=== PATIENT | female | born 1950 | race Caucasian/White ===

== ENCOUNTER 2017-07-06 09:01 | Inpatient (IN) | payer OTHER ==
--- NOTE | 2017-07-06 09:17 | EDPHY ---
H & P Time Seen by Provider: 07/06/17 09:16 HPI/ROS: Chief complaint. Confusion HPI. Patient is a 67-year-old female with indwelling Hughes catheter. 2 days ago she had nausea and vomiting. She was confused yesterday and was seen by her PCP who diagnosed a UTI started on Bactrim. Urine was cultured and the culture results are still pending. She was slightly agitated. This morning however her symptoms have progressed with more confusion than more agitation. She could not feed herself this morning secondary to tremor. She also has today right lower extremity swelling and warmth. There has been no trauma to her leg. Today she is confused to place and date. She tells me she thinks is 2000. Her has noticed decreased urine output and the urine was very dark yesterday. He has increased her oral fluids and today her urine is more clear. She has had low-grade fever and been more fidgety than usual. Again she has chronic indwelling Hughes catheter. She has had urosepsis previously. No upper respiratory findings. ROS Constitutional. Fever and weakness Eyes. no problems with vision ENT. no sore throat, no nasal drainage Cardiovascular. no chest pain Respiratory. no shortness of breath, no cough Abdominal. no abdominal pain, no nausea/vomiting, no diarrhea . Dark urine with recent diagnosis UTI and indwelling catheter MS. no calf pain/swelling, no neck/back pain, no joint pain Skin. no rash Lymph. no swollen glands Neuro. Confusion Past Medical/Surgical History: Past medical history MS, hypertension, dyslipidemia Social History: , nonsmoker, no alcohol Smoking Status: Never smoked Physical Exam: General Appearance: Alert well-developed female somewhat confused vital signs are stable Eyes: Pupils equal and round no pallor or injection. ENT, Mouth: Mucous membranes are moist. Respiratory: There are no retractions, lungs are clear to auscultation. Cardiovascular: Regular rate and rhythm. Gastrointestinal: Abdomen is soft and nontender, no masses, bowel sounds normal. Neurological: Awake and alert, sensory and motor exams grossly normal. Skin: Warm and dry, no rashes. Musculoskeletal: Neck is supple nontender. Extremities right lower extremity has swelling and erythema and warmth. Psychiatric: Patient is oriented to person but not place or time. Mildly agitated. Constitutional: Initial Vital Signs Temperature (C) 37.4 C 07/06/17 09:05 Heart Rate 78 07/06/17 09:05 Respiratory Rate 18 07/06/17 09:05 Blood Pressure 148/78 H 07/06/17 09:05 O2 Sat (%) 94 07/06/17 09:05 O2 Delivery Mode Room Air Allergies/Adverse Reactions: carbamazepine [From Tegretol] Allergy (Mild, Verified 07/06/17 09:04) Itching Home Medications: Medication Instructions Recorded Alendronate Sodium [Fosamax 70 MG 70 mg PO DAILY 07/06/17 (*)] Aspirin [Aspirin 325 mg (*)] 325 mg PO DAILY 07/06/17 Baclofen [Baclofen 20 mg (*)] 20 mg PO BID 07/06/17 FLUoxetine [PROzac] 40 mg PO 07/06/17 Gabapentin [Neurontin 300 MG (*)] 300 mg PO HS 07/06/17 Hydrochlorothiazide [HCTZ (*)] 25 mg PO DAILY 07/06/17 Lisinopril [Zestril 2.5 mg (*)] 2.5 mg PO 07/06/17 Metoprolol Succinate Xr [Toprol Xl 50 mg PO DAILY 07/06/17 50 mg (*)] Ondansetron Odt [Zofran Odt 4 mg 4 mg PO Q4 07/06/17 (*)] Solifenacin Succinate [Vesicare 5 07/06/17 MG (*)] Sulfamethox/Tmp 800/160 mg 1 tab PO 07/06/17 [Bactrim Ds] tiZANidine HCL [Zanaflex] 4 mg PO HS 07/06/17 Medical Decision Making - Diagnostics Imaging Results: Imaging Impressions Extremity Venous Study 07/06/17 09:33 Impression: 1. No deep venous thrombosis right leg. 2. Right groin lymph nodes. 3. Limited evaluation of the right calf veins. Findings and recommendations discussed with Emergency Department physician, LEIGH ANN MARSHALL at 10:40 hour, 07/06/2017. Final report concurs with initial preliminary interpretation. One-view chest x-ray interpreted by me as negative for pneumonia Procedures: IV normal saline. Sepsis workup including blood in urine cultures. IV Rocephin. ED Course/Re-evaluation: Lactate is negative. \re-evaluation at 10:45 p.m.. Patient is stable but unchanged. She is being given IV Rocephin. Patient, her , and I discussed imaging and lab results. We discussed treatment plan including recommendation for admission. They expressed understanding and agreement I consulted discussed the case with Dr. Pardo, hospitalist, who agrees to the admission Differential Diagnosis: Patient appears to have failed outpatient management of urinary tract infection with indwelling Hughes. She however has had only 1 dose of oral antibiotics. However she is more confused and unable to feed herself. She is disoriented to place and time. I considered sepsis for though her lactate is normal. She has a swollen, erythematous, warm right lower extremity. I considered DVT but the ultrasound shows no evidence for DVT. This is likely cellulitis of the right lower extremity. There is no evidence for pneumonia. She also has significant hyponatremia. - Data Points Laboratory Results: Laboratory Results 07/06/17 09:55 07/06/17 07/06/17 07/06/17 10:30 10:30 09:55 WBC RBC Hgb Hct MCV MCH MCHC RDW Plt Count MPV Neut % (Auto) Lymph % (Auto) Dougherty % (Auto) Eos % (Auto) Baso % (Auto) Nucleat RBC Rel Count Absolute Neuts (auto) Absolute Lymphs (auto) Absolute Monos (auto) Absolute Eos (auto) Absolute Basos (auto) Absolute Nucleated RBC Immature Gran % Immature Gran # PT Pending INR Pending APTT Pending VBG Lactic Acid Sodium Pending 117 mEq/L L* mEq/L (135-145) Potassium Pending 4.1 mEq/L mEq/L (3.5-5.2) Chloride Pending 84 mEq/L L mEq/L (97-110) Carbon Dioxide Pending 23 mEq/l mEq/l (22-31) Anion Gap Pending 10 mEq/L mEq/L (8-16) BUN Pending 15 mg/dL mg/dL (7-23) Creatinine Pending 0.5 mg/dL L mg/dL (0.6-1.0) Estimated GFR Pending > 60 Glucose Pending 97 mg/dL mg/dL (70-100) Calcium Pending 8.3 mg/dL L mg/dL (8.5-10.4) Total Bilirubin 1.0 mg/dL mg/dL (0.1-1.4) Specimen Hemolysis 117 Urine Color Urine Appearance Urine pH Ur Specific [place] Urine Protein Urine Ketones Urine Blood Urine Nitrate Urine Bilirubin Urine Urobilinogen Ur Leukocyte Esterase Urine RBC Urine WBC Ur Epithelial Cells Amorphous Sediment Urine Bacteria Urine Mucus Urine Glucose 07/06/17 07/06/17 07/06/17 09:55 09:55 09:20 WBC 13.56 10^3/uL H 10^3/uL (3.80-9.50) RBC 4.24 10^6/uL 10^6/uL (4.18-5.33) Hgb 13.1 g/dL g/dL (12.6-16.3) Hct 36.7 % L % (38.0-47.0) MCV 86.6 fL fL (81.5-99.8) MCH 30.9 pg pg (27.9-34.1) MCHC 35.7 g/dL g/dL (32.4-36.7) RDW 13.2 % % (11.5-15.2) Plt Count 180 10^3/uL 10^3/uL (150-400) MPV 9.8 fL fL (8.7-11.7) Neut % (Auto) 90.9 % H % (39.3-74.2) Lymph % (Auto) 3.6 % L % (15.0-45.0) Dougherty % (Auto) 4.9 % % (4.5-13.0) Eos % (Auto) 0.1 % L % (0.6-7.6) Baso % (Auto) 0.1 % L % (0.3-1.7) Nucleat RBC Rel Count 0.0 % % (0.0-0.2) Absolute Neuts (auto) 12.31 10^3/uL H 10^3/uL (1.70-6.50) Absolute Lymphs (auto) 0.49 10^3/uL L 10^3/uL (1.00-3.00) Absolute Monos (auto) 0.67 10^3/uL 10^3/uL (0.30-0.80) Absolute Eos (auto) 0.02 10^3/uL L 10^3/uL (0.03-0.40) Absolute Basos (auto) 0.02 10^3/uL 10^3/uL (0.02-0.10) Absolute Nucleated RBC 0.00 10^3/uL 10^3/uL (0-0.01) Immature Gran % 0.4 % % (0.0-1.1) Immature Gran # 0.05 10^3/uL 10^3/uL (0.00-0.10) PT INR APTT VBG Lactic Acid 1.1 mmol/L mmol/L (0.7-2.1) Sodium Potassium Chloride Carbon Dioxide Anion Gap BUN Creatinine Estimated GFR Glucose Calcium Total Bilirubin Specimen Hemolysis Urine Color RED Urine Appearance HAZY Urine pH 6.0 (5.0-7.5) Ur Specific [place] 1.006 (1.002-1.030) Urine Protein NEGATIVE (NEGATIVE) Urine Ketones NEGATIVE (NEGATIVE) Urine Blood NEGATIVE (NEGATIVE) Urine Nitrate POSITIVE H (NEGATIVE) Urine Bilirubin NEGATIVE (NEGATIVE) Urine Urobilinogen NEGATIVE EU EU (0.2-1.0) Ur Leukocyte Esterase 1+ H (NEGATIVE) Urine RBC NONE SEEN /hpf /hpf (0-3) Urine WBC 1-3 /hpf /hpf (0-3) Ur Epithelial Cells TRACE /lpf /lpf (NONE-1+) Amorphous Sediment PRESENT /hpf /hpf (NONE-1+) Urine Bacteria 1+ /hpf H /hpf (NONE SEEN) Urine Mucus TRACE /lpf /lpf (NONE-1+) Urine Glucose NEGATIVE (NEGATIVE) Medications Given: Ceftriaxone Sodium/Dextrose (Rocephin 1 Gm (Premix)) 50 mls @ 100 mls/hr IV EDNOW ONE PRN Reason: Protocol Stop: 07/06/17 10:59 Last Admin: 07/06/17 10:42 Dose: 50 mls Departure - Departure Disposition: [facility] Inpatient Acute Clinical Impression: Hyponatremia Urinary tract infection Qualifiers: Urinary tract infection type: site unspecified Hematuria presence: without hematuria Qualified Code(s): N39.0 - Urinary tract infection, site not specified Altered mental status Qualifiers: Altered mental status type: disorientation Qualified Code(s): R41.0 - Disorientation, unspecified Condition: Fair Referrals: Jaye Ramsey MD [Medical Doctor] - As per Instructions
[2017-07-06 10:06] LABS: PLATELET COUNT 180 10^3/uL (150-400)
[2017-07-06 10:51] LABS: INR 0.96 (0.83-1.16)
[2017-07-06] MEDS ORDERED: ONDANSETRON DISINTEGRATING 4 MG TAB PO PRN (10:59)
[2017-07-06] MEDS ORDERED: ONDANSETRON 4 MG/2 ML VIAL IVP PRN (10:59)
[2017-07-06] MEDS ORDERED: NS 1,000 ML IV SCH (12:15)
[2017-07-06] MEDS ORDERED: ALTEPLASE 2 MG VIAL IVP PRN (13:07)
--- NOTE | 2017-07-06 13:51 | GHP ---
[f rep st] HISTORY AND PHYSICAL DATE OF ADMISSION: 07/06/2017 CHIEF COMPLAINT: Altered mental status, UTI, cellulitis, and hyponatremia. HISTORY OF PRESENT ILLNESS: This is a 67-year-old female with a history of multiple sclerosis, neurogenic bladder with chronic Hughes, brought in by her for increased confusion. She was seen by her PCP yesterday with complaints of 2 days of nausea and vomiting that was moderate in severity. She has had decreased p.o. intake. Per , she is more confused and has had a mild tremor. He was suspicious that she had a urinary infection because these are symptoms she presents with in the past. She was seen in the office and had a positive UA and was started on Bactrim and took 2 doses. He brought her today because her confusion has progressed. She has been taking her normal home medications, including hydrochlorothiazide. No diarrhea, cough. has noticed overnight that her right foot and leg have become more swollen, as well as red and warm to touch. Had her Hughes last changed on June 16. REVIEW OF SYSTEMS: I completed a 10-point review of systems, negative, except as noted in the HPI. PAST MEDICAL HISTORY: Hypertension, hyperlipidemia, multiple sclerosis, chronic Hughes, prior urinary tract infections, trigeminal neuralgia. PAST SURGICAL HISTORY: Tubal ligation. Breast biopsy was negative. SOCIAL HISTORY: Lives in [place] with her . No alcohol, tobacco, or illicits. FAMILY HISTORY: Noncontributory. HOME MEDICATIONS: Benadryl q.h.s., mag oxide, multivitamin, calcium carbonate, vitamin D, vitamin D3 2000 units daily, atorvastatin 20 mg daily at 12, baclofen 20 mg 5 times a day, aspirin 325 q.h.s., Fosamax weekly, lisinopril 2.5 mg daily, hydrochlorothiazide 25 mg q.h.s., Neurontin 300 mg b.i.d., fluoxetine 400, Bactrim 1 tab p.o. b.i.d. (has taken 2 doses), Zofran as needed , Toprol 50 daily, Zanaflex 4 mg q.h.s., VESIcare. ALLERGIES: Tegretol. PHYSICAL EXAM: VITAL SIGNS: Temperature 36.9, blood pressure 115/70, heart rate 76, respirations 14, 92% on room air. GENERAL: female, lying in bed, mildly uncomfortable. HEENT: PERRLA. Dry mucous membranes. Oropharynx clear. CV: Regular rate and rhythm. No murmurs, gallops, or rubs. LUNGS: Clear. ABDOMEN: Mildly distended but soft. No grimace or pain with palpation. : No CVA or suprapubic tenderness. Hughes in place with yellow urine. NEURO: 2 through 12 intact. Spasticity of lower extremities. PSYCH: Alert to self only. SKIN: Warmth and erythema over left foot and ankle. No ulceration or purulence or open lesions. It is warm and red. LABORATORY DATA: WBC is 13. Hemoglobin is 13, hematocrit 36, platelets 180. INR is 0.9. Lactate is 1.1. Sodium 120, potassium 3.5, chloride 85, carbon dioxide 24, creatinine 0.6, glucose 95. Serum osmolality is 248. Calcium is 8.6. Urine: Positive nitrite, +1 leukocyte esterase, +1 bacteria. Ultrasound of right leg negative for DVT. Chest x-ray: No evidence of effusion or pneumonia. ASSESSMENT AND PLAN: 1. Acute metabolic encephalopathy: This is multifactorial with acute urinary tract infection, cellulitis, and hyponatremia. Will start IV antibiotics. Will correct sodium slowly. No focal deficits on exam. Will hold central acting medications, including her tizanidine, baclofen, gabapentin. 2. Hypovolemic hyponatremia: Due to decreased p.o. intake, nausea, vomiting, and continue on hydrochlorothiazide. Serum osmolality is low at 248. Sodium is 120. Will start normal saline slowly at 75 mL an hour, check sodium q.4. Auto diuresis, may need DDAVP to prevent too rapid of correction. 3. Urinary tract infection: We started on Bactrim yesterday. Will transition to IV antibiotics here. She is afebrile. Blood and urine cultures are pending. 4. Right leg cellulitis: Nonpurulent. Will start IV Ancef. Negative ultrasound for DVT. 5. Multiple sclerosis: Is wheelchair bound. 6. Depression: Resume home medications. 7. Hyperlipidemia: Statin. 8. Hypertension: Resume home medications. 9. Diet: Advance as tolerated. 10. Deep venous thrombosis prophylaxis: Lovenox. 11. Disposition: Patient warrants inpatient admission given acute encephalopathy and infection. Continue IV fluids and antibiotics. Critical care time spent: 50 min examining pt, reviewing records and coordinating ICU treatment plan. /[id number]/MODL CHRISTOPHER
--- NOTE | 2017-07-06 15:02 | PDMN ---
Medical Necessity Medical necessity: C/M review: est. > 2 MN LOS for eval and TX of acute metabolic encephalopathy, hypovolemic hyponatremia, urinary tract infection, blood and urine cultures pending right leg cellulitis requiring planned 2017 PICC placement, ongoing IV Ancef, IV fluids, comorbid patient started on oral Bactrim 07/05/2017, failed outpt. therapy, multiple sclerosis, patient is wheelchair bound, depression, hyperlipidemia, hypertension, chronic indwelling Hughes catheter, history of prior urinary tract infections, trigeminal neuralgia per H/P.
[2017-07-06] MEDS ORDERED: POTASSIUM CL 20 MEQ TAB PO ONE (16:12)
[2017-07-06] MEDS: ACETAMINOPHEN 325 MG TAB PO PRN (16:20)
--- NOTE | 2017-07-06 16:56 | ASMTCMCOM ---
CM Note CM Note Notes: Pt admtd for metabolic encephelopathy related to acute UTI, hyponatremia (d/t N/V, decreased intake), and leg cellulitis. Pt presented to the ED with her Sagar. They live in [place] and pt's PCP is Dr Alla Agustin. Exact DC needs TBD. CM to follow. Date Signed: 07/06/2017 04:55 PM Electronically Signed By:Liza Bray RN
[2017-07-06] MEDS ORDERED: PROTOCOL POTASSIUM 1 DOSE MISC PRN (20:17)
[2017-07-06] MEDS: POTASSIUM Cl (KCl) 50 ML IV SCH ×3 (20:41→20:43)
[2017-07-06] MEDS: CALCIUM CARB W/VIT D 500 MG TAB PO SCH (22:25)
[2017-07-07] MEDS: FLUoxetine 20 MG CAP PO SCH (09:02)
[2017-07-07] MEDS ORDERED: NS IV ONE (09:03)
[2017-07-07] MEDS ORDERED: DESMOPRESSIN ACETATE IV ONE (09:03)
[2017-07-07] MEDS: ENOXAPARIN 40 MG/0.4 ML SYR SC SCH (09:03)
--- NOTE | 2017-07-07 09:12 | HOSPPROG ---
Hospitalist Progress Note Assessment/Plan: #Strep bacteremia( awaiting species) -skin source with cellulitis. Cont Ancef #CAUTI: chronic diaz in place. Culture pending #Metabolic encephalopathy: due to infection, hyponatremia #Hypovolemic hyponatremia: corrected too quickly. Spoke with Objective: Vital Signs Temp Pulse Resp BP Pulse Ox 36.9 C 80 17 135/68 H 99 07/07/17 07:59 07/07/17 07:59 07/07/17 07:59 07/07/17 07:59 07/07/17 07:59 Laboratory Results 07/07/17 05:00 07/06/17 07/07/17 07/08/17 05:59 05:59 05:59 Intake Total 2165 Output Total 3275 Balance -1110 PT 13.0 SEC (12.0-15.0) 07/06/17 10:30 INR 0.96 (0.83-1.16) 07/06/17 10:30 ICD10 Worksheet Patient Problems: Problems Problem Status Onset Altered mental status Acute Hyponatremia Acute Urinary tract infection Acute
[2017-07-07] MEDS: LISINOPRIL 2.5 MG TAB PO SCH (09:49)
[2017-07-07] MEDS: ACETAMINOPHEN 325 MG TAB PO PRN (11:00)
--- NOTE | 2017-07-07 11:40 | GCON ---
[f rep st] CONSULTATION INFECTIOUS DISEASE CONSULTATION DATE OF CONSULTATION: 07/07/2017 REFERRING PHYSICIAN: Elisa Pardo MD REASON FOR CONSULTATION: Bacteremia. CHIEF COMPLAINT: Altered mental status, right lower extremity cellulitis, and UTI. HISTORY OF PRESENT ILLNESS: This is a 67-year-old female with a past medical history of multiple sclerosis, wheelchair bound, neurogenic bladder with a chronic Hughes, recently changed on June 16 by her . They are in the process of moving from [place] and only moved here about 3 weeks ago. This past , she woke up and suddenly had nausea and vomiting. There was some difficulty keeping p.o. intake. By Saturday, she was a little bit better and only vomited twice. They took her to her primary care doctor on Saturday who did a urine study and felt she probably had a urinary tract infection. She was placed on Bactrim empirically. By Saturday, she was starting to have some increase in confusion on Saturday, but this had worsened over on Saturday, and therefore they came into the hospital for further evaluation. Blood cultures x2 sets were drawn. Urinalysis and urine culture were also sent. She was given a dose of ceftriaxone and placed on Ancef 1 g q.8. Blood cultures popped up positive for Streptococcus, not further identified. The patient is unable to tell me if she feels any better. She is answering some questions, but is not answering others. Per her , she is usually more conversational. She does have some baseline confusion according to him, but this is more than her baseline. Infectious Disease is now consulted for further evaluation and plan. REVIEW OF SYSTEMS: CONSTITUTIONAL: No fevers or shaking chills. HEAD: Had headache this morning. EYES: No change in her vision. ENT: She cannot tell me if she has had any sore throat or difficulty swallowing. She feels like her throat is dry. CARDIOVASCULAR: She denies any chest pain or rapid heartbeat. RESPIRATORY: She cannot tell me if she is short of breath, but she denies coughing. ABDOMEN: Denies any further nausea, vomiting. She had a normal bowel movement on Saturday, followed by a looser bowel movement on Saturday. She normally does not have bowel movements every day. Usually she has to have a bowel regimen in place. She is complaining of some midabdominal pain. : She has a Hughes in place. MUSCULOSKELETAL: She is complaining of right lower extremity pain. SKIN: Right lower extremity redness. Rest of 10-point review of systems essentially negative except above. PAST MEDICAL HISTORY: Significant for multiple sclerosis, wheelchair bound; dyslipidemia; hypertension; neurogenic bladder with a chronic Hughes; history of urinary tract infections in the past; trigeminal neuralgia; breast lump. She has had some injuries to her right ankle and has had some chronic swelling from that. PAST SURGICAL HISTORY: Significant for tubal ligation and breast biopsy that returned as benign. ALLERGIES: Tegretol. SOCIAL HISTORY: She is a nonsmoker. Does not drink alcohol. Lives with her . They recently moved from [place] about 3 weeks ago. FAMILY HISTORY: Significant for coronary artery disease in her father. MEDICATIONS: As per MAR. PHYSICAL EXAMINATION: VITAL SIGNS: Temperature current 36.9, T-max 37.7, pulse is 80, blood pressure 135/68, respiratory rate is 17, O2 saturations 99% on 1 L O2 per nasal cannula. GENERAL: Patient is resting in bed. No acute respiratory distress. Awake and alert. She is not oriented to time or date. She knows she is in the hospital. HEENT: Head is normocephalic, atraumatic. Eyes without conjunctival injection or petechiae noted. They are reactive to light. Oropharynx: She does appear to have some gingivitis noted. CARDIOVASCULAR: S1, S2. Regular rate and rhythm. She has a 3/6 systolic murmur appreciated. This is new to her and her . RESPIRATORY: Clear to auscultate anteriorly. No obvious rhonchi or rales appreciated. ABDOMEN: Slightly distended, but according to her has been not more than baseline. She has a small umbilical hernia. She is nontender to palpation. There is no guarding or rebound appreciated. EXTREMITIES: She has right lower extremity edema. Right lower extremity swelling involving her foot, ankle, and leg predominantly. There is erythema over the right foot in a more diffuse fashion and then more patchy erythema over the leg and slightly up onto the thigh. This is not warm or hot to touch. She has some mild dry skin, but no obvious breaks in the skin. No obvious tenia pedis. Nontender to palpation. Left lower extremity: Again, mild dry skin. No obvious tenia pedis noted. She has a PICC line in the left upper extremity. LABORATORY DATA: White blood cell count is 13.5, hemoglobin 13.1, platelets are 180, neutrophil count 90%. INR 0.9. Venous lactic acid 1.1. Sodium 133, up from 120 when she first came in. Potassium 4.3, chloride is 99, bicarb 26. BUN is 8, creatinine 0.5. Urinalysis shows positive nitrites, positive leukocyte esterases. Urine WBCs 1-3, urine bacteria 1+. This is after a couple doses of Bactrim. Blood cultures 1/4 bottles with gram-positive cocci in chains and pairs with a preliminary ID of Streptococcus, not group A, not group B, not pneumococcus. Urine culture from the 6th shows 80,000 to 90,000 gram-negative rods, non-lactose blanket washer, greater than 1000 Enterococcus faecalis, and greater than 100,000 two colony types. Urine culture from yesterday is showing greater than 100,000 gram-negative rods and non-lactose blanket washer and greater than 100,000 gram-positive cocci. Chest x-ray images were reviewed, and there is no evidence of pneumonia. Right lower extremity ultrasound shows no evidence of DVT. ASSESSMENT: 1. Streptococcus bacteremia. 2. Right lower extremity cellulitis. 3. Positive urine culture with bland Urinanalysis-likely colonzied. 4. Murmur. PLAN: The Streptococcus isolated in the blood culture could represent Streptococcus viridans, or group C/G Streptococcus. Given that I heard a murmur and this is new to her, I would recommend a baseline transthoracic echocardiogram to further evaluate. Recommend elevating her right lower extremity to help reduce swelling. Urine cultures are polymicrobial with no real change after a couple doses of Bactrim. Urinanalysis however is quite bland. Likely represent colonization. Spoke to microbiology. Steptococcus in blood is not Enterococcus. Continue with Ancef given #1, and #2. Plan of care was discussed with the patient and her at the bedside. Care was coordinated with the hospitalist team, the box truck washer team, her RN, and Pharmacy. I thank you very much for providing this opportunity to care for your patient in consultation. /[id number]/MODL MTDD
[2017-07-07] MEDS ORDERED: METOPROLOL SUCCINATE XR 50 MG TAB PO SCH (12:00)
[2017-07-07] MEDS: METOPROLOL SUCCINATE XR 50 MG TAB PO SCH (12:19)
[2017-07-07] MEDS: D5W 1,000 ML IV SCH ×2 (12:21→17:45)
--- NOTE | 2017-07-07 12:38 | WOCRNPDOC ---
WOCRN Advanced Assessment Note - Skin Integrity Problem, Advanced Assess Sacrum Dermatitis Dressing Type: Mepilex Border Dressing Description: Clean/Dry, Intact Exudate Amount: None Integumentary Issue Intervention: Dressing Removed Marialuisa Wound Tissue: Blanching Wound Bed Color: [place] Skin Integrity Problem Comment: Patient with an anatomical dimple over her sacrum. Given her anatomy, there is likely some skin on skin contact in this area and this patient has developed a very mild intertriginal dermatitis as a result. Removed the mepilex to the area to allow for greater air flow. Patient already on TAPS system and turn schedule and with good support. Wound care will not continue to follow this patient. Please reconsult PRN.
--- NOTE | 2017-07-07 12:47 | HOSPPROG ---
Hospitalist Progress Note Assessment/Plan: #Strep bacteremia -skin source with cellulitis vs. Enterococcus (prior UTI) Cont Ancef 2gm. Appreciate ID -cehck echo with murmur #Right foot cellulitis: negative US. IV Ancef #Pyuria: has chronic diaz; may colonization. H/o Enterococcus #Metabolic encephalopathy: mildly improved. Due to infection, hyponatremia. Holding home meds that are sedative #Hypovolemic hyponatremia: multifactorial with HCTZ, N/V. Large amount UOP overnight; thus corrected quickly. Discussed with Dr. Wharton who recommended DDAVP, D5W 200ml/mr. Q4hr Na. Will stop D5W once Na 126-27. If polyuric again, re-dose DDAVP. #MS: restart anti-spasmotics once mentally clears #Leukocytosis/fever: plan as above #Sacrum dermatitis: present at admission #HLD: statin #HTN: BB, ACEI #DVT: lovenox #Diet: regular #Disp: warrants ICU admission for serial BMP, IVFs, abx. Critical care time spent: 50 min evaluating labs, patient and d/w with Dr. Hroton , Norm Norman and Dr. Wharton Subjective: more alert and talkative per Objective: Vital Signs Temp Pulse Resp BP Pulse Ox 37.2 C 87 16 116/88 H 96 07/07/17 12:36 07/07/17 12:36 07/07/17 12:36 07/07/17 12:36 07/07/17 12:36 Laboratory Results 07/07/17 05:00 07/06/17 07/07/17 07/08/17 05:59 05:59 05:59 Intake Total 2165 Output Total 3275 Balance -1110 PT 13.0 SEC (12.0-15.0) 07/06/17 10:30 INR 0.96 (0.83-1.16) 07/06/17 10:30 - Time Spent With Patient Time Spent with Patient: greater than 35 minutes Time Spent with Patient: Greater than 35 minutes spent on this patients care, greater than 50% of time spent counseling, educating, and coordinating care regarding the above mentioned plan. - Physical Exam Constitutional: no apparent distress Eyes: PERRL Ears, Nose, Mouth, Throat: dry mucous membranes Cardiovascular: regular rate and rhythym, systolic murmur Respiratory: no respiratory distress Gastrointestinal: normoactive bowel sounds Genitourinary: diaz in urethra Skin: warm, other (right foot and lower legs swollen, red and warm to touch. No open wounds/lesions) Neurologic: other (alert to [place] and year only (normally A&Ox3)) ICD10 Worksheet Patient Problems: Problems Problem Status Onset Altered mental status Acute Hyponatremia Acute Urinary tract infection Acute
[2017-07-07] MEDS: CALCIUM CARB W/VIT D 500 MG TAB PO SCH ×2 (12:48→22:05)
[2017-07-07] MEDS: CHOLECALCIFEROL VIT D3 2,000 UNITS TAB/CAP PO SCH (12:55)
--- NOTE | 2017-07-07 13:01 | ECHO ---
[email or web address] [address] [address] Main: [phone] Fax: Transthoracic Echocardiogram Name: LUIS F CALVO MR#: [id number] Study Date: 07/07/2017 Study Time: 11:40 AM Date of : 1950 Age: 67 year(s) Height: 160 cm (63 in.) Weight: 83.92 kg (185 lb.) BSA: 1.87 m2 Gender: Female Examination: Echo Indication: Murmur, strep bacteremia Image Quality: Technically Difficult Contrast: Requested by: Loretta Zheng BP: 123 mmHg/50 mmHg Heart Rate: Rhythm: Normal sinus rhythm Indication: Murmur, strep bacteremia Procedure Staff Spray Drier Operator Helper: Opal iDaz [facility] Reading Physician: Juan José Solomon MD Requesting Provider: Conclusions: Normal global systolic LV function. There is mild thickening of the mitral valve leaflets. Trivial to mild mitral regurgitation. Mild aortic valve regurgitation is present. Trivial to mild tricuspid valve regurgitation. Right ventricular systolic pressure measures 46mmHg. The pulmonary artery pressure is mild to moderately increased. Measurements: Chambers Valvular Assessment AV/MV Valvular Assessment TV/PV Normal Normal Normal Name Value Range Name Value Range Name Value Range Ao Aisha (MM): 3.0 cm (2.2 cm-3.7 AV Vmax: 1.58 m/s (1 m/s-1.7 TR Vmax: 3.20 mm/s ( - ) cm) m/s) TR PGmax: 41 mmHg ( - ) IVSd (2D): 1.0 cm (0.6 cm-1.1 AV maxP mmHg ( - ) syst. PAP: 46 mmHg ( - ) cm) LVOT Vmax: 1.44 m/s (0.7 m/s-1.1 PV Vmax: 1.03 m/s (0.6 m/s-0.9 LVDd (2D): 4.3 cm (3.9 cm-5.3 m/s) m/s) cm) MV E Vmax: 0.76 m/s ( - ) PV PGmax: 4 mmHg ( - ) LVDs (2D): 2.6 cm (2.1 cm-4 MV A Vmax: 0.88 m/s ( - ) cm) MV E/A: 0.86 ( - ) LVPWd (2D): 0.9 cm ( - ) LVEF (MOD4): 74 % (>=55 %) Continued Measurements: Chambers Valvular Assessment AV/MV Valvular Assessment TV/PV Name Value Name Value Name Value LADs: 2.9 cm MV DecTime: 155 m/s CVP (est.): 5 mmHg LADs Lon.3 cm LA Area: 18.4 cm2 Patient: LUIS F CALVO Study Date: 07/07/2017 Page 1 of 2 11:40 AM LA Volume: 43 ml LA Volume Index: 23.0 ml/m2 RA Area: 10.0 cm2 Findings: Left Ventricle: Normal size left ventricle. No LV hypertrophy. Normal global systolic LV function. EF is 74 %. No regional wall motion abnormality. Right Ventricle: Normal size right ventricle. Normal RV function. Left Atrium: The left atrium is normal in size. Right Atrium: The right atrium is normal in size. Mitral Valve: The mitral valve is normal in appearance and function. There is mild thickening of the mitral valve leaflets. Trivial to mild mitral regurgitation. No mitral stenosis is present. There is no mitral valve vegetation. Aortic Valve: The aortic valve is tri-leaflet and functions normally. Mild aortic valve regurgitation is present. No aortic valve stenosis is present. There is no aortic valve vegetation. Tricuspid Valve: The tricuspid valve is normal in appearance and function. Trivial to mild tricuspid valve regurgitation. Right ventricular systolic pressure measures 46mmHg. The pulmonary artery pressure is mild to moderately increased. No tricuspid valve vegetation. Pulmonic Valve: The pulmonic valve is normal in appearance and function. Trivial pulmonic valve regurgitation. Aorta: The aorta is normal. Normal size aortic root measuring 3.0 cm. Pericardium: No pericardial effusion. (No Signature Object) Patient: LUIS F CALVO Study Date: 07/07/2017 Page 2 of 2 11:40 AM [id number]
[2017-07-07] MEDS ORDERED: ceFAZolin 2 GM/DEXTROSE 100 ML IV SCH (14:00)
[2017-07-07] MEDS: ceFAZolin 2 GM/SWFI 2 GM/20 ML SYR IVP SCH ×2 (14:42→22:05)
--- NOTE | 2017-07-07 17:11 | GCON ---
[f rep st] CONSULTATION CRITICAL CARE CONSULTATION DATE OF CONSULTATION: 07/07/2017 REASON FOR CONSULTATION: Cellulitis, sepsis, hyponatremia. HISTORY: The patient is a 67-year-old with multiple medical problems. She has multiple sclerosis, h as a neurogenic bladder with chronic indwelling Hughes. She has had multiple urinary tract infections in the past. She was brought to the emergency department by her yesterday for confusion/dec reased mental status. She had had some nausea and vomiting prior and decreased p.o. intake. She als o had increasing lower extremity edema on the right, associated with redness. She had been started o n Bactrim by her primary care physician prior to her admission. In the emergency department, she was afebrile and normotensive. Decreased mental status was noted. She had swelling and erythema of the right lower extremity. Lactate was negative. A venous ultrasou nd of the right lower extremity was done. There was no evidence of DVT. Chest x-ray was unremarkabl e. She was admitted to the step-down unit in the intensive care unit. Admission laboratory document ed significant hyponatremia with a sodium of 120. PAST MEDICAL HISTORY: Remarkable for multiple sclerosis, she gets around in a wheelchair, hypertensi on, hyperlipidemia, chronic indwelling Hughes catheter, trigeminal neuralgia, lower extremity edema, a nd somewhat of waxing and waning mental status secondary to her MS. SOCIAL HISTORY: She was with her . He is very supportive. She has an extended support netwo rk as well. Alcohol and tobacco are negative. FAMILY HISTORY: Noncontributory. REVIEW OF SYSTEMS: Unobtainable from the patient. 10-point review of systems is negative except as noted above. PHYSICAL EXAMINATION: GENERAL: Reveals a woman who looks to voice and answers some questions. ROLY L SIGNS: Blood pressure is approximately 120/70, heart rate 90 with sinus rhythm on the monitor. Re spiratory rate is 16. On room air saturations are 95%. She appears comfortable. HEENT: Remarkable for some mild facial flushing. Mucous membranes are moist. She is able to eat. There is no jugula r venous distention, lymphadenopathy, or thyromegaly. CHEST: Clear anteriorly. Breath sounds are d iminished at the bases. HEART: Regular in rate and rhythm, without murmur or gallop. ABDOMEN: Mil dly distended, soft, nontender. Bowel sounds are present. A Hughes catheter is in place with good ur ine output. EXTREMITIES: The right lower extremity is remarkable for edema, erythema and warmth, th ere is 1+ edema on the left. She does move all extremities, although weakly. NEUROLOGIC: Formal ne urologic evaluation was not performed. Mental status remains decreased. She is able to answer some simple questions with 1 or 2 words only. Sometimes she does not answer. DATABASE: Radiologic studies are as outlined above. Cardiac echocardiogram shows normal left ventricular function. The right ventricle is normal as well . Estimated pulmonary pressures are [id number] elevated at 46. Laboratory, white blood cell count is 13,500, hematocrit 36. Platelets are 180,000. PT and PTT were normal on admission. Blood lactate was 1.1. Current laboratory reveals a sodium of 130, potassium of 4.1, normal BUN and creatinine, glucose of 108, calcium 7.9. Urinalysis on admission showed few w [place] blood cells, positive for urine nitrites. Sodium was less than 10. Early blood cultures indicate a Streptococcus species. Identification and sensitivities are pending. She was also found to have Pseudomonas and Enterococcus in her urine. This is felt most likely to be asymptomatic and non infectious bacteriuria. ASSESSMENT: 1. Right lower extremity cellulitis. She is being treated with cefazolin. Infectious Disease has s een the patient. There is no evidence of deep tissue infection. 2. Hyponatremia. Sodium on admission was at 120. She has been treated and this is coming up slowly . Renal is following. The patient was on hydrochlorothiazide prior to admission. This, as well as chronic medical problems, acute infection, along with recent nausea, vomiting, and decreased oral int tiesha, may all be contributing. 3. Multiple sclerosis. Stable. 4. Indwelling Hughes catheter, with asymptomatic bacteriuria, not felt to be an infectious etiology a t this time. 5. History of other medical problems as outlined above, stable. 6. Deep vein thrombosis prophylaxis, started on Lovenox. Gastrointestinal prophylaxis, eating, none required. PLAN AND RECOMMENDATIONS: Patient will be kept in the intensive care unit. Neurologic status will b e monitored. Clinical status will be followed. Antibiotics will be continued. Her usual medication s will be continued. Sodium is being followed every 4 hours. D5W is being administered currently. She has received some DDAVP when sodium was rising too rapidly. Her usual outpatient medications vernon l be continued with the exception of hydrochlorothiazide, which will be stopped at this point. Further plans and recommendations will be made based on her progress over the next 12 to 24 hours. /[id number]/MODL
[2017-07-08] MEDS: ceFAZolin 2 GM/SWFI 2 GM/20 ML SYR IVP SCH ×3 (06:01→20:59)
[2017-07-08] MEDS: LISINOPRIL 2.5 MG TAB PO SCH (08:32)
[2017-07-08] MEDS: CALCIUM CARB W/VIT D 500 MG TAB PO SCH ×2 (08:32→20:59)
[2017-07-08] MEDS: ENOXAPARIN 40 MG/0.4 ML SYR SC SCH (08:33)
[2017-07-08] MEDS: FLUoxetine 20 MG CAP PO SCH (08:33)
[2017-07-08] MEDS: METOPROLOL SUCCINATE XR 50 MG TAB PO SCH (12:01)
[2017-07-08] MEDS: CHOLECALCIFEROL VIT D3 2,000 UNITS TAB/CAP PO SCH (12:02)
--- NOTE | 2017-07-08 12:21 | PDINTPN ---
Desktop Publishing Operator Progress Note Assessment/Plan: Assessment: * Right lower extremity cellulitis * Hyponatremia * Multiple sclerosis-patient wheelchair-bound * In indwelling catheter * Hypertension * Strep bacteremia * Waxing and waning mental status Plan: Antibiotics per Infectious Disease Pain control Echo results pending Adequate nutrition PTOT Subjective: Sitting up eating. Conversant. Denies any pain at this time. Objective: Vital Signs Temp Pulse Resp BP Pulse Ox 36.8 C 87 19 142/79 H 98 07/08/17 11:47 07/08/17 12:01 07/08/17 11:47 07/08/17 11:47 07/08/17 11:47 Laboratory Results 07/08/17 04:50 07/08/17 08:30 07/07/17 07/08/17 07/09/17 05:59 05:59 05:59 Intake Total 2165 3043 Output Total 3275 760 Balance -1110 2283 PT 13.0 SEC (12.0-15.0) 07/06/17 10:30 INR 0.96 (0.83-1.16) 07/06/17 10:30 - Time Spent With Patient Time Spent With Patient: 25 min of time spent with patient, over 1/2 involved with coordination of care or counseling Physical Exam - Physical Exam General Appearance: alert, no apparent distress EENT: PERRL/EOMI Neck: non-tender, full range of motion, supple, normal inspection Respiratory: rhonchi (Few basilar), No accessory muscle use, No decreased breath sounds, No stridor, No wheezing Cardiac/Chest: normal peripheral pulses, regular rate, rhythm, systolic murmur Abdomen: normal bowel sounds, non-tender, soft Pelvic Exam: deferred Rectal: deferred Neuro/Psych: alert, normal mood/affect ICD10 Worksheet Patient Problems: Problems Problem Status Onset Altered mental status Acute Hyponatremia Acute Urinary tract infection Acute
[2017-07-08] MEDS: BACLOFEN 20 MG TAB PO SCH ×3 (13:24→20:59)
--- NOTE | 2017-07-08 15:20 | HOSPPROG ---
Hospitalist Progress Note Assessment/Plan: 67 yo F with hx of MS and hyponatremia presenting with cellulitis/bacteremia and hyponatremia #Strep bacteremia: with associated cellulitis, repeat cultures negative. Appreciate ID, continued ancef. Echo without e/o vegetation. #Right foot cellulitis: negative US. IV Ancef #Pyuria: with chronic indwelling diaz, urine culture showing pseudomonas and enterococcus #Metabolic encephalopathy: due to infection, hyponatremia and waxing and waning in improvement likely 2/2 delirium #Hypovolemic hyponatremia: multifactorial with HCTZ, N/V. Initially overcorrected quickly now correcting slowly #MS: restarting anti-spasmotics #Leukocytosis/fever: plan as above #Sacrum dermatitis: present at admission #HLD: statin #HTN: BB, ACEI #DVT: lovenox #Diet: regular #Disp: warrants ICU admission for serial BMP, IVFs, abx. Patient new to my care. Old records reviewed and summarized as above. Care plan reviewed with Dr. Chu on rounds. Subjective: no significant overnight events, patient more somnolent today compared to yesterday Objective: Vital Signs Temp Pulse Resp BP Pulse Ox 36.8 C 87 19 142/79 H 98 07/08/17 11:47 07/08/17 12:01 07/08/17 11:47 07/08/17 11:47 07/08/17 11:47 Laboratory Results 07/08/17 04:50 07/08/17 13:32 07/07/17 07/08/17 07/09/17 05:59 05:59 05:59 Intake Total 2165 3043 Output Total 3275 760 Balance -1110 2283 PT 13.0 SEC (12.0-15.0) 07/06/17 10:30 INR 0.96 (0.83-1.16) 07/06/17 10:30 somnolent arousable anicteric op clear rrr no mrg cta b soft nt nd rle with edema/erythema + pitting ICD10 Worksheet Patient Problems: Problems Problem Status Onset Hyponatremia Acute Urinary tract infection Acute Altered mental status Acute
--- NOTE | 2017-07-08 18:14 | PCMIDPN ---
Assessment/Plan: Assessment/Plan: * Right lower extremity cellulitis: Clinical findings consistent with right lower extremity cellulitis. Appearance suggestive of beta-hemolytic streptococcal etiology. Continue lower extremity elevation and cefazolin. Continues to have waxing and waning mental status which may be related to underlying infection in the setting of multiple sclerosis. * Positive blood culture: 1/2 sets with growth of Streptococcus salivarius. TTE without evidence of endocarditis. Unclear if this has clinical significance and may represent contaminant. Not typical pathogen to be associated with skin and soft tissue infection. * Positive urine culture: Suspect represents colonization rather than true infection given urinalysis findings with minimal pyuria. 07/08/17 18:11 07/08/17 18:13 07/08/17 18:17 Subjective: Family notes patient with waxing and waning of mental status. Objective: Vital Signs Temp Pulse Resp BP Pulse Ox 36.9 C 81 19 125/76 H 94 07/08/17 15:53 07/08/17 15:53 07/08/17 15:53 07/08/17 15:53 07/08/17 15:53 Laboratory Results 07/08/17 04:50 07/08/17 17:30 07/07/17 07/08/17 07/09/17 05:59 05:59 05:59 Intake Total 2165 3043 555 Output Total 3275 760 500 Balance -1110 2283 55 Cefazolin # 2 Blood cultures 1/2 sets Streptococcus salivarius Transthoracic echocardiogram with mild mitral valve thickening; no vegetations noted or significant valvular dysfunction - Physical Exam General Appearance: no apparent distress, non-toxic, other (Responds nonverbally ) EENT: No thrush, No conjunctival petechiae Respiratory: lungs clear, No respiratory distress Cardiac/Chest: regular rate, rhythm, systolic murmur (2/6 left and right upper sternal borders) Extremities: inflammation (Right lower extremity with erythema and warmth over dorsum of foot extending on to lower anterior leg with separate patch over medial thigh which is somewhat zen in appearance and patchy; edema present over ankle but no joint irritability) Abdomen: non-tender, No distended Skin: No embolic lesions ICD10 Worksheet Patient Problems: Problems Problem Status Onset Altered mental status Acute Hyponatremia Acute Urinary tract infection Acute
[2017-07-08] MEDS: GABAPENTIN 300 MG CAP PO SCH (20:59)
[2017-07-08] MEDS ORDERED: POTASSIUM Cl (KCl) 50 ML IV ONE (23:58)
[2017-07-09] MEDS: ceFAZolin 2 GM/SWFI 2 GM/20 ML SYR IVP SCH ×3 (05:32→21:36)
[2017-07-09] MEDS: BACLOFEN 20 MG TAB PO SCH ×5 (05:32→21:39)
[2017-07-09] MEDS: ENOXAPARIN 40 MG/0.4 ML SYR SC SCH (09:00)
[2017-07-09] MEDS: GABAPENTIN 300 MG CAP PO SCH ×2 (09:01→21:39)
[2017-07-09] MEDS: FLUoxetine 20 MG CAP PO SCH (09:01)
[2017-07-09] MEDS: LISINOPRIL 2.5 MG TAB PO SCH (09:01)
[2017-07-09] MEDS: CALCIUM CARB W/VIT D 500 MG TAB PO SCH ×2 (09:01→21:39)
--- NOTE | 2017-07-09 11:02 | PDINTPN ---
Database Software Technician Progress Note Assessment/Plan: Assessment: * Right lower extremity cellulitis * Hyponatremia * Multiple sclerosis-patient wheelchair-bound * In indwelling catheter * Hypertension * Strep bacteremia * Waxing and waning mental status-markedly improved Plan: Antibiotics per Infectious Disease Pain control Echo results pending Adequate nutrition PTOT Okay for transfer to medical surgical floor 07/09/17 11:01 Subjective: Sitting up in bed. Mental status much improved. Conversant and alert. Objective: Vital Signs Temp Pulse Resp BP Pulse Ox 36.7 C 65 13 130/68 H 99 07/09/17 08:00 07/09/17 08:00 07/09/17 08:00 07/09/17 08:00 07/09/17 08:00 Laboratory Results 07/08/17 04:50 07/09/17 08:10 07/08/17 07/09/17 07/10/17 05:59 05:59 05:59 Intake Total 3043 2934 Output Total 760 2250 Balance 2283 684 PT 13.0 SEC (12.0-15.0) 07/06/17 10:30 INR 0.96 (0.83-1.16) 07/06/17 10:30 - Time Spent With Patient Time Spent With Patient: 25 min of time spent with patient, over 1/2 involved with coordination of care counseling Physical Exam - Physical Exam General Appearance: alert, no apparent distress EENT: PERRL/EOMI Neck: non-tender, full range of motion, supple, normal inspection Respiratory: rhonchi (Few), No respiratory distress Cardiac/Chest: normal peripheral pulses, regular rate, rhythm Peripheral Pulses: 2+: carotid (R), carotid (L), femoral (R), femoral (L), dorsalis-pedis (R), dorsalis-pedis (L) Abdomen: normal bowel sounds, non-tender, soft Pelvic Exam: deferred Rectal: deferred Skin: normal color, warm/dry Extremities: non-tender Neuro/Psych: alert ICD10 Worksheet Patient Problems: Problems Problem Status Onset Altered mental status Acute Hyponatremia Acute Urinary tract infection Acute
--- NOTE | 2017-07-09 11:40 | HOSPPROG ---
Hospitalist Progress Note Assessment/Plan: 67 yo F with hx of MS and hyponatremia presenting with cellulitis/bacteremia and hyponatremia #Right foot cellulitis: negative US. IV Ancef and elevation, improved overnight # strep salivarius bacteremia/without sepsis: present in 1/2 bottles and may represent contaminant, tx as above #bacturia: with chronic indwelling diaz, urine culture showing pseudomonas and enterococcus suspected to be colonization rather than true infection given low wbc on UA #acute Metabolic encephalopathy: due to infection, hyponatremia and waxing and waning in improvement likely 2/2 delirium. Overnight has largely improved and patient now essentially back to baseline. #Hypovolemic hyponatremia: multifactorial with HCTZ, N/V. Initially overcorrected quickly but has been correcting appropriately since then, back in normal range and will dc serial bmps #MS: restarting anti-spasmotics, patient is doing well and more comfortable with those on board #Leukocytosis/fever: plan as above #Sacrum dermatitis: present at admission #HLD: statin #HTN: BB, ACEI #DVT: lovenox #Diet: regular #Disp: warrants ICU admission for serial BMP, IVFs, abx. Care plan reviewed with Dr. Chu on rounds. Further hx obtained from patients present at bedside. Subjective: patient feeling much better this am, more awake and alert, denies pain, leg feels better Objective: Vital Signs Temp Pulse Resp BP Pulse Ox 36.7 C 65 13 130/68 H 99 07/09/17 08:00 07/09/17 08:00 07/09/17 08:00 07/09/17 08:00 07/09/17 08:00 Laboratory Results 07/08/17 04:50 07/09/17 08:10 07/08/17 07/09/17 07/10/17 05:59 05:59 05:59 Intake Total 3043 2934 Output Total 760 2250 Balance 2283 684 PT 13.0 SEC (12.0-15.0) 07/06/17 10:30 INR 0.96 (0.83-1.16) 07/06/17 10:30 somnolent arousable anicteric op clear rrr no mrg cta b soft nt nd rle with edema/erythema + pitting ICD10 Worksheet Patient Problems: Problems Problem Status Onset Altered mental status Acute Hyponatremia Acute Urinary tract infection Acute
[2017-07-09] MEDS: CHOLECALCIFEROL VIT D3 2,000 UNITS TAB/CAP PO SCH (12:20)
[2017-07-09] MEDS: METOPROLOL SUCCINATE XR 50 MG TAB PO SCH (12:20)
--- NOTE | 2017-07-09 15:07 | PCMIDPN ---
Assessment/Plan: Assessment/Plan: 1. Strep salivarius bacteremia: - one set out of 2 positive - not classic organism to cause #2 - Currently on Ancef therapy - TTE without obvious vegetation. mild thickened MV - i ordered for follow up blood cx today to follow 2. RLe cellulitis: - likely streptococcal related - still with erythema - needs to elevated legs - improved from Saturday -Continue Ancef. 3. Positive urine cultures (polymicrobial) represent colonization: - no directive therapy warranted at this time. mds ancef 2g q8- Subjective: afebrile. sitting in wheelchair. feeling better. much more conversive today than on Saturday. smiling. more oriented as well. denies sob, abd pain. denies RLE pain. Objective: Vital Signs Temp Pulse Resp BP Pulse Ox 36.7 C 65 13 130/68 H 99 07/09/17 08:00 07/09/17 08:00 07/09/17 08:00 07/09/17 08:00 07/09/17 08:00 Laboratory Results 07/08/17 04:50 07/09/17 08:10 07/08/17 07/09/17 07/10/17 05:59 05:59 05:59 Intake Total 3043 2934 Output Total 760 2250 Balance 2283 684 - Physical Exam General Appearance: alert, no apparent distress Respiratory: lungs clear Cardiac/Chest: regular rate, rhythm Extremities: swelling Abdomen: normal bowel sounds, non-tender, soft, No distended Skin: erythema (righ foot erythema and swelling noted. warmth. no bullae or blisters. some dry skin) ICD10 Worksheet Patient Problems: Problems Problem Status Onset Altered mental status Acute Hyponatremia Acute Urinary tract infection Acute
--- NOTE | 2017-07-09 16:19 | ASMTCMCOM ---
CM Note CM Note Notes: reports that patient is better, more alert and oriented. 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 She has an electric W/C. Patient has cellulitis on her R LE and receiving ABX. Patient transferred to . This CM unable to meet with before she was transferred. might like HC assistance? May need IV ABX at home? Date Signed: 07/09/2017 04:18 PM Electronically Signed By:Yanira Cunningham LCSW
[2017-07-10] MEDS: ceFAZolin 2 GM/SWFI 2 GM/20 ML SYR IVP SCH ×2 (05:36→14:09)
[2017-07-10] MEDS: BACLOFEN 20 MG TAB PO SCH ×5 (05:39→21:25)
[2017-07-10] MEDS: CALCIUM CARB W/VIT D 500 MG TAB PO SCH ×2 (09:50→21:25)
[2017-07-10] MEDS: FLUoxetine 20 MG CAP PO SCH (09:50)
[2017-07-10] MEDS: GABAPENTIN 300 MG CAP PO SCH ×2 (09:50→21:25)
[2017-07-10] MEDS: ENOXAPARIN 40 MG/0.4 ML SYR SC SCH (09:51)
[2017-07-10] MEDS: LISINOPRIL 2.5 MG TAB PO SCH (10:58)
--- NOTE | 2017-07-10 12:00 | HOSPPROG ---
Hospitalist Progress Note Assessment/Plan: New patient encounter 67 yo F with hx of MS and hyponatremia presenting with cellulitis/bacteremia and hyponatremia #Right foot cellulitis: negative US. IV Ancef and elevation # strep salivarius bacteremia/without sepsis: present in 1/2 bottles and may represent contaminant, tx as above #bacteruria: with chronic indwelling diaz, urine culture showing pseudomonas and enterococcus suspected to be colonization rather than true infection given low wbc on UA #acute Metabolic encephalopathy: due to infection, hyponatremia and waxing and waning in improvement likely 2/2 delirium. now essentially back to baseline. #Hypovolemic hyponatremia: multifactorial with HCTZ, N/V. Initially overcorrected quickly but has been correcting appropriately since then, back in normal range #MS: restarting anti-spasmotics, patient is doing well and more comfortable with those on board #Leukocytosis/fever: plan as above #Sacrum dermatitis: present at admission #HLD: statin #Pedal Edema #HTN: BB, ACEI #DVT: lovenox #Diet: regular #Disp: inpatient Plan: -cont Ancef -Restart Home meds -cont to hold HCTZ -No diuretics, elevate legs -if cont to improve, may consider d/c soon -ID is following, will wait for reccs on abx duration. Awaiting repeat cultures -Her is a retired Nurse Subjective: feeling better. Transferred out of the ICU yesterday. no cp or sob. has some pedal edema a little worse than baseline Objective: Vital Signs Temp Pulse Resp BP Pulse Ox 36.8 C 56 L 16 155/79 H 93 07/10/17 08:00 07/10/17 08:00 07/10/17 08:00 07/10/17 08:00 07/10/17 08:00 Laboratory Results 07/08/17 04:50 07/10/17 04:30 07/09/17 07/10/17 07/11/17 05:59 05:59 05:59 Intake Total 2934 750 Output Total 2250 1450 Balance 684 -700 PT 13.0 SEC (12.0-15.0) 07/06/17 10:30 INR 0.96 (0.83-1.16) 07/06/17 10:30 - Physical Exam Constitutional: no apparent distress Eyes: PERRL, EOMI Ears, Nose, Mouth, Throat: moist mucous membranes, hearing normal Cardiovascular: regular rate and rhythym, No edema Respiratory: no respiratory distress Gastrointestinal: normoactive bowel sounds, soft, non-tender abdomen Skin: warm Musculoskeletal: generalized weakness Neurologic: AAOx3 Psychiatric: interacting appropriately, not anxious, not encephalopathic Lymph, Heme, Immunologic: No petechiae ICD10 Worksheet Patient Problems: Problems Problem Status Onset Altered mental status Acute Hyponatremia Acute Urinary tract infection Acute
[2017-07-10] MEDS: ATORVASTATIN CALCIUM 20 MG TAB PO SCH ×2 (12:39→12:40)
[2017-07-10] MEDS: CHOLECALCIFEROL VIT D3 2,000 UNITS TAB/CAP PO SCH (12:40)
[2017-07-10] MEDS: METOPROLOL SUCCINATE XR 50 MG TAB PO SCH (12:40)
--- NOTE | 2017-07-10 14:05 | PCMIDPN ---
Assessment/Plan: #RLE cellulitis, wbc normalized. CrCl 60-80. ECHO negative, patchy erythema RLE, erythema still fairly intense on dorsum of foot. Suspect clinical change in erythema will be slow due to underlying chronic SORAYA --patient wants to go home soon, could consider home IV antibiotics, patient's retired RN --high dose cefazolin, but now no bacteremia, decrease dose to 1gm IV q8h #S. Salivarius & micrococcus in 1/2 sets blood cx: suspect contaminant, discussed with patient and #H/O MS: no immune modulating agents in years #Chr diaz with Urinary colonization with PsA & enterococcus: no Rx meds Ancef 2gm IV q8#4 s/p Bactrim DS PO as outpatient Subjective: apparently leg not quite as good as it was yesterday no diarrhea Objective: Vital Signs Temp Pulse Resp BP Pulse Ox 36.8 C 67 16 155/79 H 93 07/10/17 08:00 07/10/17 12:40 07/10/17 08:00 07/10/17 08:00 07/10/17 08:00 Laboratory Results 07/08/17 04:50 07/10/17 04:30 07/09/17 07/10/17 07/11/17 05:59 05:59 05:59 Intake Total 2934 750 Output Total 2250 1450 Balance 684 -700 - Physical Exam General Appearance: alert, no apparent distress Respiratory: No accessory muscle use Extremities: erythema (R foot most prominent and confluent; horan, calf erythema more patchy) Skin: No rash Neuro/Psych: alert, normal mood/affect, oriented x 3 - Line/s LUE PICC Lines: No drainage, No erythema - Time Spent With Patient Time Spent with Patient: greater than 35 minutes (reviewing lab results including blood cultures, plans for continued IV therapy, importance of elevation) Time Spent with Patient: Greater than 35 minutes spent on this patients care, greater than 50% of time spent counseling, educating, and coordinating care regarding the above mentioned plan. ICD10 Worksheet Patient Problems: Problems Problem Status Onset Altered mental status Acute Hyponatremia Acute Urinary tract infection Acute
[2017-07-10] MEDS ORDERED: ASPIRIN 325 MG TAB PO SCH (21:00)
[2017-07-10] MEDS ORDERED: diphenhydrAMINE 25 MG CAP PO PRN (22:33)
[2017-07-11] MEDS: BACLOFEN 20 MG TAB PO SCH ×3 (05:12→15:05)
[2017-07-11] MEDS: GABAPENTIN 300 MG CAP PO SCH (09:46)
[2017-07-11] MEDS: CALCIUM CARB W/VIT D 500 MG TAB PO SCH (09:46)
[2017-07-11] MEDS: FLUoxetine 20 MG CAP PO SCH (09:46)
[2017-07-11] MEDS: ENOXAPARIN 40 MG/0.4 ML SYR SC SCH (09:47)
[2017-07-11] MEDS: LISINOPRIL 2.5 MG TAB PO SCH (09:49)
--- NOTE | 2017-07-11 10:28 | PCMIDPN ---
Assessment/Plan: Assessment: Right lower extremity cellulitis. Presentation with sepsis and significant mental status changes. Patient is now back to baseline per herself and her . Positive blood culture is related to contamination and not indicative of the true pathogens. Patient has improved on IV cefazolin. Plan to switch over to oral Keflex 500 mg p.o. 4 times a day to complete a total of a 10 day course. Stable for discharge home from my standpoint. Plan: 1. Discontinue PICC line. 2. Change IV Ancef to oral Keflex 500 mg p.o. 4 times a day for outpatient therapy. Total duration of 10 days. 3. Follow up with primary care physician. 07/11/17 10:25 Subjective: Patient is awake and alert. She is sitting up in her wheelchair. She is just finished with breakfast. She is interactive and talkative on the phone and with her . She states that her right leg is still a little bit swollen. Also a bit warm. Improved over admission. Objective: Cefazolin # 5 Vital Signs Temp Pulse Resp BP Pulse Ox 36.8 C 64 16 171/74 H 95 07/11/17 07:30 07/11/17 09:49 07/11/17 07:30 07/11/17 09:49 07/11/17 07:30 Laboratory Results 07/08/17 04:50 07/11/17 05:00 07/10/17 07/11/17 07/12/17 05:59 05:59 05:59 Intake Total 750 815 Output Total 1450 1500 Balance -700 -685 - Physical Exam General Appearance: WD/WN, alert, no apparent distress, non-toxic, other ( Wheelchair bound) Respiratory: lungs clear, normal breath sounds, No respiratory distress Cardiac/Chest: regular rate, rhythm, No tachycardia Extremities: non-tender, inflammation, swelling, erythema (Mild blanching erythema right lower foot.), No normal inspection Skin: normal color, warm/dry, No rash Neuro/Psych: alert, normal mood/affect, oriented x 3 ICD10 Worksheet Patient Problems: Problems Problem Status Onset Altered mental status Acute Hyponatremia Acute Urinary tract infection Acute
[2017-07-11] MEDS: ATORVASTATIN CALCIUM 20 MG TAB PO SCH (12:17)
[2017-07-11] MEDS: METOPROLOL SUCCINATE XR 50 MG TAB PO SCH (12:17)
[2017-07-11] MEDS: CHOLECALCIFEROL VIT D3 2,000 UNITS TAB/CAP PO SCH (12:17)
[2017-07-11 12:18] VITALS: BP 157/82
--- NOTE | 2017-07-11 13:07 | PDDCSUM ---
Discharge Summary Discharge Summary: HPI/Hospital course 67 yo F with hx of MS and hyponatremia admitted with sepsis due to lower extremity cellulitis. She was also found to have hyponatremia. She was admitted into the ICU. ID was consulted. Overall she is much better now and will continue Keflex 500mg QID for a total of 7 day abx regimen. Please see below for details per problem list. Discharge diagnosis: #Right foot cellulitis: negative US. -Treated with IV Ancef and elevation -Now transitioning to oral Keflex for a total of 10 days of abx # strep salivarius bacteremia/without sepsis: present in 1/2 bottles and may represent contaminant #bacteruria: with chronic indwelling diaz, urine culture showing pseudomonas and enterococcus suspected to be colonization rather than true infection given low wbc on UA #acute Metabolic encephalopathy: due to infection, hyponatremia and waxing and waning in improvement likely 2/2 delirium. now essentially back to baseline. #Hypovolemic hyponatremia: multifactorial with HCTZ, N/V. now within normal range #MS: restarting anti-spasmotics, patient is doing well and more comfortable with those on board #Leukocytosis/fever: plan as above #Sacrum dermatitis: present at admission #HLD: statin #Pedal Edema: chronic #HTN: Lisinopril has been increased to 5mg daily. cont Metoprolol. Hold HCTZ #DVT: lovenox #Diet: regular #Disp: inpatient F/U: with PCP in one week. Meds: see med rec Physical Exam: VSS NAD AAOX3 RRR CTA B TOTAL TIME SPENT ON D/C IS 40 MINUTES
== END 2017-07-11 15:23 | disposition home or self-care (01) | DRG 871 ==
LOC: F2N 12:37 → F1N 07-09 15:08
PROVIDERS: ADMIT Internal Medicine; ATTEND Family Medicine
PROC: 02HV33Z Insertion of Infusion Device into Superior Vena Cava, Percutaneous Approach (ICD-10-PCS; principal; 2017-07-06)
DX: A41.9 Sepsis, unspecified organism (principal); L03.115 Cellulitis of right lower limb; L30.9 Dermatitis, unspecified; G93.41 Metabolic encephalopathy; E87.1 Hypo-osmolality and hyponatremia; G35 Multiple sclerosis; R01.1 Cardiac murmur, unspecified; E78.5 Hyperlipidemia, unspecified; R60.0 Localized edema; I10 Essential (primary) hypertension; N31.9 Neuromuscular dysfunction of bladder, unspecified; Z87.440 Personal history of urinary (tract) infections; Z99.3 Dependence on wheelchair
CPT/HCPCS: 96365; C1751; J0690; J0696; J1650; J2405; J2597; J3480